=== PATIENT | male | born 1950 | race Caucasian/White ===

== ENCOUNTER → 2018-09-11 | Outpatient (REF) ==
[~2018-09-11] MED LIST: AMBIEN 10MG10 MG PO; AMOXICILLIN875 MG PO; ANXIETY MED; ATIVAN 1MG T1 MG/TAB PO; CADUET 2.5 MG; CLARITIN 1010 MG/TAB PO; COZAAR100 MG PO; DEPRESSION MED; EFFEXOR-XR150 MG PO; FLONASEALLERGY NS; MUCUS RELIEF400 M1 PO; NORVASC 5MG5 MG/TAB PO; PLAVIX 75MG TAB75 MG PO; PRAVACHOL 20MG20 MG PO; PRILOTC PO; TENORMIN 2525 MG/TAB; TENORMIN 2525 MG/TAB PO
== END ==
LOC: COL.CARD 17:03
DX: Z01.818 Encounter for other preprocedural examination (principal)

== ENCOUNTER → 2018-10-16 | Outpatient (CLI) | payer MEDICARE, OTHER | LOC: COL.PUL 10-05 10:00 | DX: R06.02 Shortness of breath (principal); Z87.891 Personal history of nicotine dependence ==

== ENCOUNTER → 2018-11-13 | Outpatient (CLI) | payer MEDICARE, OTHER | LOC: COL.RAD 09:42 | DX: J98.4 Other disorders of lung (principal) | CPT/HCPCS: Q9967 ==